=== PATIENT | male | born 2005 | race Caucasian/White ===

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

== ENCOUNTER 2024-04-10 23:10 | Emergency (ER) | payer BC ==
[2024-04-10] MEDS: Lidocaine 1% with EPINEPHrine 1:100,000 10 ML MDV INJECT ONE (23:29)
== END 2024-04-10 23:41 | disposition home or self-care (01) ==
LOC: MW.ED 23:10
DX: S01.81XA Laceration without foreign body of other part of head, initial encounter (principal); W22.8XXA Striking against or struck by other objects, initial encounter
CPT/HCPCS: 12001; 12011; 99282; 99283; J3490